=== PATIENT | male | born 1950 | race Caucasian/White ===

== ENCOUNTER 2021-12-23 08:05 | Inpatient (IN) ==
[2021-12-23] MEDS ORDERED: 0.9 % Sodium Chloride 1,000 ML ONE ×4 (08:31→13:12)
[2021-12-23] MEDS ORDERED: *HR* Midazolam HCl 2 MG/2 ML VIAL ONE ×2 (09:21→10:13)
[2021-12-23] MEDS ORDERED: *HR* Heparin 10,000 UNIT/10 ML VIAL ONE ×2 (09:21→09:48)
[2021-12-23] MEDS ORDERED: *HR* FentaNYL (PF) 100 MCG/2 ML VIAL ONE ×2 (09:21→10:25)
[2021-12-23] MEDS ORDERED: Heparin 1,000 UNITS/500 mL 500 ML ONE ×3 (09:22→11:33)
[2021-12-23] MEDS ORDERED: Nitroglycerin 1,000 MCG/5 ML VIAL IV ONE (09:22)
[2021-12-23] MEDS ORDERED: Iopamidol - 370 200 ML INFUS..BTL ONE ×2 (09:22→10:02)
[2021-12-23] MEDS ORDERED: *HR* Succinylcholine 200 MG/10 ML VIAL IVP ONE (09:30)
[2021-12-23] MEDS ORDERED: *HR* Etomidate 20 MG/10 ML AMPUL IVP ONE (09:30)
[2021-12-23] MEDS ORDERED: Ondansetron 4 MG/2 ML VIAL ONE (10:26)
[2021-12-23] MEDS ORDERED: *HR* Norepinephrine 4 MG/4 ML VIAL IVC ONE (10:37)
[2021-12-23] MEDS ORDERED: 0.9 % Sodium Chloride 250 ML ONE (10:38)
[2021-12-23] MEDS ORDERED: Protamine Sulfate 50 MG/5 ML VIAL IVP ONE (11:26)
[2021-12-23] MEDS ORDERED: Naloxone 0.4 MG/ML INJ IVP PRN (12:15)
[2021-12-23] MEDS: Midazolam HCl 50 MG/50 ML IV.SOLN IVC SCH ×3 (13:00→20:17)
[2021-12-23] MEDS: FentaNYL (PF) 1,000 MCG/100 ML IV.SOLN IVC SCH ×3 (13:00→20:35)
[2021-12-23] MEDS ORDERED: Artificial Tears SOLN 15 ML BOTTLE BOTH EYES PRN (13:13)
[2021-12-23] MEDS ORDERED: Potassium Phosphate 44 MEQ in 0.9 % Sodium Chloride 250 ML IVPB PRN (13:15)
[2021-12-23] MEDS ORDERED: Calcium Gluconate 1gm/50mL 1 GM/50 ML BAG IVPB PRN (13:15)
[2021-12-23] MEDS ORDERED: Norepinephrine 4 MG/254 ML IV.SOLN IVC ONE (13:18)
[2021-12-23] MEDS: Norepinephrine 4 MG/254 ML IV.SOLN IVC SCH (13:20)
[2021-12-23 14:56] LABS: ABG Base Excess -3 mEq/L (-2 to 3); ABG HCO3 24 mEq/L (21-27); ABG Oxygen Saturation 100 % (95-98); ABG PCO2 53 mmHg (35-45); ABG PH 7.27 pH Units (7.32-7.45); ABG PO2 446 mmHg (85-104); ABG TCO2 26 mEq/L (20-26); Blood Gas Modality ASSIST CONTROL; Blood Gas VT 500 cc
[2021-12-23] MEDS: Pantoprazole 40 MG VIAL IVP SCH (15:05)
[2021-12-23 15:07] LABS: Basophils # 0.1 K/mcL (0.0-0.2); Basophils % 0.5 %; Eosinophils % 0.2 %; Hematocrit 41.2 % (37.5-50.1); Hemoglobin 14.1 g/dL (12.9-16.9); Immature Granulocytes % 0.8 % (0-4); Lymphocytes # 1.1 K/mcL (0.6-4.6); Lymphocytes % 10.5 %; Mean Corpuscular HGB Conc 34.2 g/dL (31.6-35.5); Mean Corpuscular Volume 93.4 fL (83.0-100.0); Mean Platelet Volume 9.9 fL (9.4-12.4); Monocytes # 0.7 K/mcL (0.0-1.3); Monocytes % 6.6 %; Neutrophils # 8.7 K/mcL (1.6-8.9); Platelet Count 221 K/mcL (140-400); Red Blood Count 4.41 M/mcL (4.19-5.50); Red Cell Distribution Width 12.1 % (11.5-14.5); Segmented Neutrophils % 81.4 %; White Blood Count 10.7 K/mcL (4.3-11.1)
[2021-12-23] MEDS: Ipratropium/Albuterol Neb 3 ML IH SCH ×2 (15:17→22:16)
[2021-12-23 15:21] LABS: BUN/Creatinine Ratio 18 (6-26); Blood Urea Nitrogen 13 mg/dL (8-23); Calcium 8.5 mg/dL (8.6-10.3); Carbon Dioxide 24 mEq/L (23-29); Chloride 106 mEq/L (98-107); Glucose 115 mg/dL (70-105); Osmolality,Calculated 281 (280-300); Potassium 3.8 mEq/L (3.5-5.1); Sodium 135 mEq/L (136-145)
[2021-12-23 15:22] LABS: Albumin 3.4 g/dL (3.5-5.7); Albumin/Globulin Ratio 1.5 (1.1-2.2); Bilirubin,Direct 0.1 mg/dL (0.0-0.2); Bilirubin,Indirect 0.5 mg/dL (0.0-1.0); Bilirubin,Total 0.6 mg/dL (0.3-1.0); Globulin 2.3 g/dL (2.4-3.5); Magnesium 1.8 mg/dL (1.6-2.6); Phosphorous 3.3 mg/dL (2.7-4.5); Total Protein 5.7 g/dL (6.4-8.9)
[2021-12-23 15:23] LABS: INR 1.1; Prothrombin Time 12.5 Seconds (9.4-12.1)
[2021-12-23] MEDS: Artificial Tears SOLN 15 ML BOTTLE BOTH EYES SCH ×4 (16:00→20:21)
[2021-12-23] MEDS ORDERED: Lidocaine -MPF 1% 5 ML AMPUL INFILT ONE (16:03)
[2021-12-23] MEDS: Chlorhexidine Rinse 15 ML MOUTHWASH MM SCH ×2 (18:02→22:43)
[2021-12-24] MEDS: Artificial Tears SOLN 15 ML BOTTLE BOTH EYES SCH ×12 (00:16→23:42)
[2021-12-24] MEDS: Midazolam HCl 50 MG/50 ML IV.SOLN IVC SCH ×2 (00:55→05:36)
[2021-12-24] MEDS: FentaNYL (PF) 1,000 MCG/100 ML IV.SOLN IVC SCH ×4 (01:19→19:32)
[2021-12-24] MEDS: Ipratropium/Albuterol Neb 3 ML IH SCH ×4 (03:31→22:03)
[2021-12-24 03:44] LABS: Hematocrit 42.2 % (37.5-50.1); Hemoglobin 14.3 g/dL (12.9-16.9); Mean Corpuscular HGB Conc 33.9 g/dL (31.6-35.5); Mean Corpuscular Hemoglobin 32.3 pg (28.0-33.3); Mean Corpuscular Volume 95.3 fL (83.0-100.0); Mean Platelet Volume 9.7 fL (9.4-12.4); Platelet Count 208 K/mcL (140-400); Red Blood Count 4.43 M/mcL (4.19-5.50); Red Cell Distribution Width 12.3 % (11.5-14.5); White Blood Count 14.2 K/mcL (4.3-11.1)
[2021-12-24 04:01] LABS: BUN/Creatinine Ratio 14 (6-26); Blood Urea Nitrogen 11 mg/dL (8-23); Calcium 8.6 mg/dL (8.6-10.3); Carbon Dioxide 23 mEq/L (23-29); Chloride 107 mEq/L (98-107); Glucose 116 mg/dL (70-105); Osmolality,Calculated 282 (280-300); Potassium 3.7 mEq/L (3.5-5.1); Sodium 136 mEq/L (136-145)
[2021-12-24] MEDS: Potassium Chloride 40 MEQ/200 ML BAG IVPB PRN ×2 (04:31→05:53)
[2021-12-24 05:29] LABS: ABG Base Excess -2 mEq/L (-2 to 3); ABG HCO3 25 mEq/L (21-27); ABG Oxygen Saturation 93 % (95-98); ABG PCO2 47 mmHg (35-45); ABG PH 7.33 pH Units (7.32-7.45); ABG PO2 71 mmHg (85-104); ABG TCO2 26 mEq/L (20-26); Blood Gas Modality ASSIST CONTROL; Blood Gas VT 500 cc
[2021-12-24] MEDS: Piperacillin/Tazobactam 3.375 GM in 0.9 % Sodium Chloride Mini Bag 100 ML IVPB SCH ×3 (06:55→23:28)
[2021-12-24] MEDS: Norepinephrine 4 MG/254 ML IV.SOLN IVC SCH ×3 (07:48→23:42)
[2021-12-24] MEDS: Dexmedetomidine HCl 400 MCG/100 ML MLS IVC SCH ×4 (10:23→23:25)
[2021-12-24] MEDS: Pantoprazole 40 MG VIAL IVP SCH (10:23)
[2021-12-24] MEDS: Chlorhexidine Rinse 15 ML MOUTHWASH MM SCH ×2 (10:23→19:36)
[2021-12-24] MEDS: Aspirin 81 MG TAB.CHEW PO SCH (10:23)
[2021-12-24] MEDS ORDERED: *HR* Atropine Sulfate 1 MG/10 ML SYRINGE ONE (16:04)
[2021-12-24] MEDS ORDERED: 0.9 % Sodium Chloride 1,000 ML ONE (16:04)
[2021-12-24] MEDS: Thiamine (B-1) 100 MG, Folic Acid 1 MG, MVI, adult with vitamin K 10 ML in 0.9 % Sodi... IVPB SCH (17:26)
[2021-12-25] MEDS: FentaNYL (PF) 1,000 MCG/100 ML IV.SOLN IVC SCH (01:56)
[2021-12-25] MEDS: Dexmedetomidine HCl 400 MCG/100 ML MLS IVC SCH ×3 (03:00→09:15)
[2021-12-25] MEDS: Ipratropium/Albuterol Neb 3 ML IH SCH ×4 (03:43→22:34)
[2021-12-25] MEDS: Artificial Tears SOLN 15 ML BOTTLE BOTH EYES SCH ×4 (04:42→19:01)
[2021-12-25 04:43] LABS: ABG Base Excess -1 mEq/L (-2 to 3); ABG HCO3 25 mEq/L (21-27); ABG Oxygen Saturation 96 % (95-98); ABG PCO2 43 mmHg (35-45); ABG PH 7.37 pH Units (7.32-7.45); ABG PO2 85 mmHg (85-104); ABG TCO2 26 mEq/L (20-26); Blood Gas Modality ASSIST CONTROL; Blood Gas VT 500 cc
[2021-12-25 04:48] LABS: Basophils # 0.1 K/mcL (0.0-0.2); Basophils % 0.4 %; Eosinophils # 0.1 K/mcL (0.0-0.6); Eosinophils % 0.7 %; Hematocrit 41.4 % (37.5-50.1); Hemoglobin 13.9 g/dL (12.9-16.9); Immature Granulocytes % 0.6 % (0-4); Lymphocytes # 1.3 K/mcL (0.6-4.6); Lymphocytes % 9.2 %; Mean Corpuscular HGB Conc 33.6 g/dL (31.6-35.5); Mean Corpuscular Hemoglobin 31.5 pg (28.0-33.3); Mean Corpuscular Volume 93.9 fL (83.0-100.0); Mean Platelet Volume 9.6 fL (9.4-12.4); Monocytes # 1.1 K/mcL (0.0-1.3); Monocytes % 7.7 %; Neutrophils # 11.3 K/mcL (1.6-8.9); Platelet Count 203 K/mcL (140-400); Red Blood Count 4.41 M/mcL (4.19-5.50); Red Cell Distribution Width 11.9 % (11.5-14.5); Segmented Neutrophils % 81.4 %; White Blood Count 13.8 K/mcL (4.3-11.1)
[2021-12-25 05:07] LABS: BUN/Creatinine Ratio 19 (6-26); Blood Urea Nitrogen 13 mg/dL (8-23); Calcium 8.9 mg/dL (8.6-10.3); Carbon Dioxide 27 mEq/L (23-29); Chloride 106 mEq/L (98-107); Glucose 151 mg/dL (70-105); Osmolality,Calculated 285 (280-300); Potassium 3.9 mEq/L (3.5-5.1); Sodium 136 mEq/L (136-145)
[2021-12-25 08:22] LABS: ABG Base Excess 0 mEq/L (-2 to 3); ABG HCO3 25 mEq/L (21-27); ABG Oxygen Saturation 90 % (95-98); ABG PCO2 42 mmHg (35-45); ABG PH 7.38 pH Units (7.32-7.45); ABG PO2 60 mmHg (85-104); ABG TCO2 26 mEq/L (20-26); Blood Gas Modality NCPAP; Blood Gas Pressure Support 7 cm H2O
[2021-12-25] MEDS ORDERED: Furosemide 40 MG/4 ML VIAL IVP ONE (11:34)
[2021-12-25] MEDS ORDERED: *HR* LORazepam 1 MG TABLET PO PRN ×3 (11:50)
[2021-12-25] MEDS: Piperacillin/Tazobactam 3.375 GM in 0.9 % Sodium Chloride Mini Bag 100 ML IVPB SCH ×2 (12:29→18:58)
[2021-12-25] MEDS: Pantoprazole 40 MG VIAL IVP SCH (12:32)
[2021-12-25] MEDS: Aspirin 81 MG TAB.CHEW PO SCH (16:15)
[2021-12-25] MEDS: Metoprolol XL (24 HR) Succ 25 MG TAB.ER.24H PO SCH (18:56)
[2021-12-25] MEDS: Thiamine (B-1) 100 MG, Folic Acid 1 MG, MVI, adult with vitamin K 10 ML in 0.9 % Sodi... IVPB SCH (18:57)
[2021-12-25] MEDS: Chlorhexidine Rinse 15 ML MOUTHWASH MM SCH ×2 (19:00→21:00)
[2021-12-25] MEDS ORDERED: Furosemide 20 MG/2 ML VIAL IVP ONE (21:11)
[2021-12-26] MEDS: Piperacillin/Tazobactam 3.375 GM in 0.9 % Sodium Chloride Mini Bag 100 ML IVPB SCH ×3 (00:26→17:39)
[2021-12-26] MEDS: Ipratropium/Albuterol Neb 3 ML IH SCH ×4 (04:33→22:50)
[2021-12-26 04:50] LABS: Basophils # 0.1 K/mcL (0.0-0.2); Basophils % 0.4 %; Eosinophils # 0.1 K/mcL (0.0-0.6); Eosinophils % 0.8 %; Hematocrit 38.4 % (37.5-50.1); Immature Granulocytes % 0.6 % (0-4); Lymphocytes # 1.4 K/mcL (0.6-4.6); Lymphocytes % 11.1 %; Mean Corpuscular HGB Conc 33.9 g/dL (31.6-35.5); Mean Corpuscular Hemoglobin 31.9 pg (28.0-33.3); Mean Corpuscular Volume 94.1 fL (83.0-100.0); Mean Platelet Volume 10.2 fL (9.4-12.4); Monocytes # 0.9 K/mcL (0.0-1.3); Monocytes % 7.4 %; Neutrophils # 9.8 K/mcL (1.6-8.9); Platelet Count 200 K/mcL (140-400); Red Blood Count 4.08 M/mcL (4.19-5.50); Red Cell Distribution Width 11.9 % (11.5-14.5); Segmented Neutrophils % 79.7 %; White Blood Count 12.3 K/mcL (4.3-11.1)
[2021-12-26 05:13] LABS: BUN/Creatinine Ratio 22 (6-26); Blood Urea Nitrogen 15 mg/dL (8-23); Carbon Dioxide 27 mEq/L (23-29); Chloride 103 mEq/L (98-107); Glucose 109 mg/dL (70-105); Osmolality,Calculated 289 (280-300); Potassium 3.1 mEq/L (3.5-5.1); Sodium 139 mEq/L (136-145)
[2021-12-26] MEDS: Pantoprazole 40 MG VIAL IVP SCH (08:44)
[2021-12-26] MEDS: Metoprolol XL (24 HR) Succ 25 MG TAB.ER.24H PO SCH (08:44)
[2021-12-26] MEDS: Chlorhexidine Rinse 15 ML MOUTHWASH MM SCH (08:45)
[2021-12-26] MEDS: Aspirin 81 MG TAB.CHEW PO SCH (08:45)
[2021-12-26] MEDS ORDERED: *HR* Heparin 5,000 UNIT/ML VIAL SQ SCH (09:15)
[2021-12-26] MEDS ORDERED: Furosemide 40 MG/4 ML VIAL IVP ONE ×2 (09:15→09:57)
[2021-12-26] MEDS ORDERED: Naloxone 0.4 MG/ML INJ IVP PRN (09:57)
[2021-12-26] MEDS: *HR* OxyCODONE/APAP 5/325 TABLET PO PRN ×2 (12:29→21:14)
[2021-12-26] MEDS: *HR* Heparin 5,000 UNIT/ML VIAL SQ SCH ×2 (17:38→21:14)
[2021-12-26] MEDS ORDERED: Saline Nasal Spray 44 ML BOTTLE NS PRN (20:46)
[2021-12-26] MEDS ORDERED: Melatonin 3 MG TABLET PO PRN (20:52)
[2021-12-27] MEDS: Piperacillin/Tazobactam 3.375 GM in 0.9 % Sodium Chloride Mini Bag 100 ML IVPB SCH ×2 (00:47→08:03)
[2021-12-27] MEDS: *HR* OxyCODONE/APAP 5/325 TABLET PO PRN (03:26)
[2021-12-27] MEDS: Ipratropium/Albuterol Neb 3 ML IH SCH ×2 (04:01→10:08)
[2021-12-27] MEDS: *HR* Heparin 5,000 UNIT/ML VIAL SQ SCH (04:45)
[2021-12-27 04:56] VITALS: O2SAT 96
[2021-12-27 05:09] LABS: Hematocrit 37.9 % (37.5-50.1); Hemoglobin 12.8 g/dL (12.9-16.9); Mean Corpuscular HGB Conc 33.8 g/dL (31.6-35.5); Mean Corpuscular Hemoglobin 31.4 pg (28.0-33.3); Mean Corpuscular Volume 93.1 fL (83.0-100.0); Mean Platelet Volume 9.7 fL (9.4-12.4); Platelet Count 223 K/mcL (140-400); Red Blood Count 4.07 M/mcL (4.19-5.50); White Blood Count 9.8 K/mcL (4.3-11.1)
[2021-12-27 05:29] LABS: BUN/Creatinine Ratio 26 (6-26); Blood Urea Nitrogen 19 mg/dL (8-23); Calcium 9.2 mg/dL (8.6-10.3); Carbon Dioxide 27 mEq/L (23-29); Chloride 104 mEq/L (98-107); Glucose 109 mg/dL (70-105); Osmolality,Calculated 291 (280-300); Potassium 3.4 mEq/L (3.5-5.1); Sodium 139 mEq/L (136-145)
[2021-12-27 06:53] LABS: Magnesium 1.9 mg/dL (1.6-2.6)
[2021-12-27] MEDS ORDERED: Aspirin 81 MG TAB.CHEW PO SCH (09:00)
[2021-12-27] MEDS ORDERED: Metoprolol XL (24 HR) Succ 25 MG TAB.ER.24H PO SCH (09:00)
[2021-12-27] MEDS ORDERED: Furosemide 40 MG/4 ML VIAL IVP ONE (09:56)
[2021-12-27 11:46] VITALS: BP 150/72; PULSE 69; TEMP 97.7
== END 2021-12-27 15:04 | disposition home or self-care (01) | DRG 246 ==
LOC: INVDIALAB 08:05 → ICNU 13:15 → 2NENU 12-26 10:53
PROVIDERS: ADMIT Internal Medicine; ATTEND Internal Medicine

== ENCOUNTER 2022-02-10 21:15 | Inpatient (IN) ==
[2022-02-11] MEDS ORDERED: Ondansetron 4 MG/2 ML VIAL IVP PRN (01:13)
[2022-02-11] MEDS ORDERED: Naloxone 0.4 MG/ML INJ IVP PRN (01:13)
[2022-02-11] MEDS ORDERED: Acetaminophen 325 MG TABLET PO PRN (01:13)
[2022-02-11] MEDS ORDERED: Melatonin 3 MG TABLET PO PRN (01:13)
[2022-02-11] MEDS ORDERED: *HR* Dextrose 50 % in Water (Syg) 50 ML SYRINGE IVP PRN (01:15)
[2022-02-11] MEDS ORDERED: Dextrose Gel 15 GM/37.5 ML TUBE PO PRN ×2 (01:15)
[2022-02-11] MEDS ORDERED: D5% in Water 1,000 ML IVC PRN (01:15)
[2022-02-11] MEDS ORDERED: Morphine Sulfate 2 MG/ML SYRINGE IVP ONE (02:53)
[2022-02-11 02:58] LABS: Basophils # 0.1 K/mcL (0.0-0.2); Basophils % 0.9 %; Eosinophils # 0.1 K/mcL (0.0-0.6); Eosinophils % 1.1 %; Hematocrit 39.8 % (37.5-50.1); Hemoglobin 13.5 g/dL (12.9-16.9); Immature Granulocytes % 0.7 % (0-4); Lymphocytes # 1.8 K/mcL (0.6-4.6); Lymphocytes % 16.6 %; Mean Corpuscular HGB Conc 33.9 g/dL (31.6-35.5); Mean Corpuscular Hemoglobin 31.5 pg (28.0-33.3); Mean Platelet Volume 9.5 fL (9.4-12.4); Monocytes # 0.7 K/mcL (0.0-1.3); Neutrophils # 7.8 K/mcL (1.6-8.9); Platelet Count 269 K/mcL (140-400); Red Blood Count 4.28 M/mcL (4.19-5.50); Red Cell Distribution Width 12.8 % (11.5-14.5); Segmented Neutrophils % 73.7 %; White Blood Count 10.5 K/mcL (4.3-11.1)
[2022-02-11 03:09] LABS: Alanine Aminotransferase 31 Units/L (7-52); Albumin 3.8 g/dL (3.5-5.7); Albumin/Globulin Ratio 1.5 (1.1-2.2); Alkaline Phosphatase 51 Units/L (34-104); Aspartate Amino Transferase 14 Units/L (13-39); BUN/Creatinine Ratio 18 (6-26); Bilirubin,Total 0.5 mg/dL (0.3-1.0); Blood Urea Nitrogen 14 mg/dL (8-23); Calcium 9.8 mg/dL (8.6-10.3); Carbon Dioxide 24 mEq/L (23-29); Chloride 105 mEq/L (98-107); Globulin 2.5 g/dL (2.4-3.5); Glucose 118 mg/dL (70-105); INR 1.2; Magnesium 1.9 mg/dL (1.6-2.6); Osmolality,Calculated 286 (280-300); Phosphorous 3.6 mg/dL (2.7-4.5); Potassium 3.8 mEq/L (3.5-5.1); Prothrombin Time 13.1 Seconds (9.4-12.1); Sodium 137 mEq/L (136-145); Total Protein 6.3 g/dL (6.4-8.9); Troponin I < 0.03 ng/mL (< 0.04)
[2022-02-11 03:11] LABS: Activated Partial Thrombo Time 33.6 Seconds (26.0-36.0)
[2022-02-11 03:28] LABS: Estimated Average Glucose 114 mg/dl; Hemoglobin A1C 5.6 %
[2022-02-11] MEDS: Apixaban 5 MG TABLET PO SCH ×2 (08:44→20:07)
[2022-02-11] MEDS: Aspirin Enteric Coated 81 MG Tablet PO SCH (08:45)
[2022-02-11] MEDS ORDERED: DilTIAZem CD (24hr) 120 MG CAP.ER.24H PO SCH (09:00)
[2022-02-11] MEDS: Isosorbide MONOnitrate (24 HR) 30 MG TAB.ER.24H PO SCH (13:57)
[2022-02-12] MEDS ORDERED: Ipratropium/Albuterol Neb 3 ML IH PRN (04:40)
[2022-02-12] MEDS: Isosorbide MONOnitrate (24 HR) 30 MG TAB.ER.24H PO SCH (08:15)
[2022-02-12] MEDS: Aspirin Enteric Coated 81 MG Tablet PO SCH (08:15)
[2022-02-12] MEDS: Apixaban 5 MG TABLET PO SCH (08:15)
[2022-02-12] MEDS ORDERED: DilTIAZem CD (24hr) 120 MG CAP.ER.24H PO SCH (09:00)
[2022-02-12 11:41] VITALS: BP 132/67; PULSE 69; TEMP 97.8; O2SAT 93
== END 2022-02-12 14:45 | disposition home or self-care (01) | DRG 313 ==
LOC: 3BNU → SUATTDRO 23:58
PROVIDERS: ADMIT Internal Medicine; ATTEND Registered Nurse